=== PATIENT | female | born 1965 | race Caucasian/White ===

== ENCOUNTER 2020-02-21 08:47 | Emergency (ER) | payer SELFPAY ==
[~2020-02-21] VITALS: Ht 154.9 cm; Wt 65.8 kg
[2020-02-21 08:53] VITALS: BP 198/99
[2020-02-21] MEDS ORDERED: MORPHINE SULFATE 4 MG/ML SYR IVP ONE (08:55)
[2020-02-21] MEDS ORDERED: ONDANSETRON 4 MG/2 ML VIAL IVP ONE (08:55)
--- NOTE | 2020-02-21 09:00 | NUR ---
54F WITH HX OF ARTHRITIS BIBA C/O SEVERE BODY PAIN/JOINT PAIN SINCE LAST NIGHT. PT TOOK NAPROSYN AND STEROIDS WITHOUT ANY RELIEF. PT ALSO C/O NAUSEA AND VOMITING. DENIES COUGH, SORE THROAT, OR COVID-19 SICK CONTACTS. PT PRESENTS WITH FEVER 100.1, TACHYCARDIA, HYPERTENSION BUT NO DIAPHORESIS OR RESPIRATORY DISTRESS. SKIN IS PINK/WARM/DRY; PATIENT STATES PAIN OF 10/10 AT THIS TIME; VSS; PATIENT POSITIONED FOR COMFORT; HOB ELEVATED; BEDRAILS UP X2; BED DOWN. ER MD MADE AWARE OF PT STATUS.
[2020-02-21] MEDS ORDERED: KETOROLAC 30 MG/ML VIAL IVP ONE (09:25)
--- NOTE | 2020-02-21 10:00 | NUR ---
PT IS RESTING IN THE BED WITH VSS. PT STATES SHE FEELS BETTER AT THIS TIME.
[2020-02-21 11:03] VITALS: BP 168/89
--- NOTE | 2020-02-21 11:03 | NUR ---
Patient discharged with v/s stable. Written and verbal after care instructions given and explained. Patient alert, oriented and verbalized understanding of instructions. Ambulatory with steady gait. All questions addressed prior to discharge. ID band removed. Patient advised to follow up with PMD. Rx of METHREXATE AND NAPROSYN given. Patient educated on indication of medication including possible reaction and side effects. Opportunity to ask questions provided and answered.
== END 2020-02-21 11:03 | disposition home or self-care (01) ==
LOC: MED 08:47
DX: M13.89 Other specified arthritis, multiple sites (principal); I10 Essential (primary) hypertension; Z98.890 Other specified postprocedural states
CPT/HCPCS: 96374; 96375; 99284; J1885; J2270; J2405